=== PATIENT | male | born 1995 | race Caucasian/White ===

== ENCOUNTER 2022-12-03 03:14 | Emergency (ER) | payer OTHER ==
[~2022-12-03] VITALS: Ht 157.5 cm; Wt 60.0 kg
[2022-12-03 03:19] VITALS: BP 128/82
== END 2022-12-03 04:20 ==
LOC: ER 03:25
DX: H10.219 Acute toxic conjunctivitis, unspecified eye (principal)
CPT/HCPCS: 99283